=== PATIENT | male | born 1960 | race African-American/Black ===

== ENCOUNTER 2018-07-10 19:12 | Inpatient (IN) | payer OTHER, MEDICAID ==
[~2018-07-10] VITALS: Ht 175.3 cm; Wt 72.6 kg
[2018-07-10] MEDS ORDERED: HYDROCODONE/ACETAMINOPHEN 5/325MG TABLET PO ONE (22:30)
[2018-07-11] MEDS ORDERED: SODIUM CHLORIDE 0.9% 1,000 ML IV ONE (01:22)
[2018-07-11] MEDS ORDERED: MORPHINE SULFATE 4 MG/ML CPJ (NOT FOR IM USE) IV STA (01:22)
[2018-07-11] MEDS ORDERED: ONDANSETRON HCL 4MG/2ML INJ IV STA (01:22)
[2018-07-11 02:11] LABS: BASOPHILS % 0.5 % (0.0-2.0); EOSINOPHILS % 4.4 % (0.0-5.0); HEMATOCRIT. 41.7 % (42.0-52.0); HEMOGLOBIN. 14.2 g/dL (14.0-18.0); LYMPHOCYTES % 50.8 % (20.0-50.0); MEAN CORPUSCULAR HEMOGLOBIN 32.5 pg (28.0-32.0); MEAN CORPUSCULAR VOLUME 95.4 fL (80.0-94.0); MEAN PLATELET VOLUME 8.2 fl (7.4-10.4); MONOCYTES % 8.7 % (2.0-8.0); NEUTROPHILS % 35.6 % (40.0-76.0); PLATELET 205 x1000/uL (130-400); RED BLOOD CELL COUNT 4.37 mill/uL (4.7-6.1); RED CELL DISTRIBUTION WIDTH 14.1 % (11.6-14.6)
[2018-07-11 02:23] LABS: CHLORIDE 105 mEq/L (98-107); INR 1.2; PROTHROMBIN TIME 11.9 sec (9.1-11.1)
[2018-07-11] MEDS ORDERED: DOCUSATE SODIUM 100MG CAPSULE PO PRN (10:00)
[2018-07-11] MEDS ORDERED: ACETAMINOPHEN 650MG/20.3ML UDC GT PRN (10:00)
[2018-07-11] MEDS ORDERED: IPRATROPIUM/ALBUTEROL 0.5-3(2.5)MG/3ML NEB INH PRN (10:00)
[2018-07-11] MEDS ORDERED: ACETAMINOPHEN 325MG TABLET PO PRN (10:00)
[2018-07-11] MEDS ORDERED: HYDROCODONE/ACETAMINOPHEN 5/325MG TABLET PO PRN (10:00)
[2018-07-11] MEDS ORDERED: GUAIFENESIN 200MG/10ML SUGAR FREE UDC PO PRN (10:00)
[2018-07-11] MEDS ORDERED: CLONIDINE 0.1MG TABLET PO PRN (10:00)
[2018-07-11] MEDS ORDERED: MAGNESIUM/ALUMINUM HYDROXIDE/SIMETHICONE 30ML UDC PO PRN (10:00)
[2018-07-11] MEDS ORDERED: ONDANSETRON HCL 4MG/2ML INJ IV PRN (10:00)
[2018-07-11] MEDS ORDERED: ACETAMINOPHEN 650MG SUPP PR PRN (10:00)
[2018-07-11] MEDS ORDERED: NA PHOS,M-B/NA PHOS,DI-BA ENEMA 118ML PR PRN (10:00)
[2018-07-11 11:00] VITALS: BP 138/76
[2018-07-11 12:00] VITALS: BP 147/80
[2018-07-11] MEDS ORDERED: GABA-531 MT (12:28)
[2018-07-11] MEDS ORDERED: INSU100I24 SQ (12:28)
[2018-07-11] MEDS ORDERED: QUET25TA MT (12:28)
[2018-07-11] MEDS ORDERED: LISPRO (12:28)
[2018-07-11] MEDS ORDERED: HYDROCODONE/ACETAMINOPHEN 10/325MG TABLET PO PRN (13:00)
[2018-07-11] MEDS: HYDROCODONE/ACETAMINOPHEN 10/325MG TABLET PO PRN ×2 (13:55→20:03)
[2018-07-11] MEDS: SODIUM CHLORIDE 0.9% INJ 3ML FLUSH IVF SCH ×2 (14:00→20:34)
[2018-07-11] MEDS ORDERED: INFLUENZA VIRUS VACCINE(AFLURIA) 0.5ML SYR IM ONE (14:00)
[2018-07-11 16:00] VITALS: BP 156/84
[2018-07-11] MEDS ORDERED: DEXTROSE 50% WATER 50ML SYRINGE IV PRN (18:45)
[2018-07-11 20:00] VITALS: BP 135/81
[2018-07-11] MEDS: GABAPENTIN 300MG CAPSULE PO SCH (20:02)
[2018-07-11] MEDS: BLOOD SUGAR DIAGNOSTIC STRIP TEST SCH (20:08)
[2018-07-11] MEDS: INSULIN LISPRO 100 UNITS/ML SUBCUT SCH (20:40)
[2018-07-11] MEDS ORDERED: QUETIAPINE FUMARATE 25MG TABLET PO SCH (21:00)
[2018-07-12] VITALS: BP 128/82
[2018-07-12 03:01] VITALS: BP 106/63
[2018-07-12 04:00] VITALS: BP 150/79
[2018-07-12] MEDS: SODIUM CHLORIDE 0.9% INJ 3ML FLUSH IVF SCH ×2 (06:11→14:00)
[2018-07-12] MEDS: HYDROCODONE/ACETAMINOPHEN 10/325MG TABLET PO PRN ×2 (06:18→13:10)
[2018-07-12] MEDS: BLOOD SUGAR DIAGNOSTIC STRIP TEST SCH ×3 (06:28→18:04)
[2018-07-12 07:20] LABS: BASOPHILS % 0.4 % (0.0-2.0); EOSINOPHILS % 3.5 % (0.0-5.0); HEMATOCRIT. 38.3 % (42.0-52.0); LYMPHOCYTES % 44.2 % (20.0-50.0); MEAN CORPUSCULAR HEMOGLOBIN 32.6 pg (28.0-32.0); MEAN CORPUSCULAR VOLUME 96.3 fL (80.0-94.0); MEAN PLATELET VOLUME 8.3 fl (7.4-10.4); MONOCYTES % 10.9 % (2.0-8.0); PLATELET 175 x1000/uL (130-400); RED BLOOD CELL COUNT 3.98 mill/uL (4.7-6.1); RED CELL DISTRIBUTION WIDTH 14.4 % (11.6-14.6)
[2018-07-12 07:55] LABS: CHLORIDE 100 mEq/L (98-107)
[2018-07-12 08:00] VITALS: BP 135/71
[2018-07-12 08:04] LABS: HDL CHOLESTEROL 40 mg/dL (40-59); LDL CHOLESTEROL 46 mg/dL (5-100)
[2018-07-12] MEDS: INSULIN LISPRO 100 UNITS/ML SUBCUT SCH ×3 (08:29→18:02)
[2018-07-12] MEDS: GABAPENTIN 300MG CAPSULE PO SCH ×3 (08:31→17:24)
[2018-07-12 12:00] VITALS: BP 143/88
[2018-07-12] MEDS ORDERED: LIDOCAINE HCL 1% 20ML VIAL (Pyxis) INJ ONE (13:14)
[2018-07-12] MEDS ORDERED: SODIUM BICARBONATE 4% (2.4MEQ) 5ML VIAL IV ONE (13:14)
[2018-07-12 14:33] LABS: *AMPHETAMINES SCREEN URINE NEGATIVE (NEGATIVE); *BARBITURATES SCREEN URINE NEGATIVE (NEGATIVE); *BENZODIAZEPINES SCREEN URINE NEGATIVE (NEGATIVE); *COCAINE SCREEN URINE NEGATIVE (NEGATIVE); CANNABINOID URINE SCREEN NEGATIVE (NEGATIVE); METHADONE URINE SCREEN NEGATIVE (NEGATIVE); OPIATES URINE SCREEN PRESUMTIVE POSITIVE (NEGATIVE); PHENCYCLIDINE URINE SCREEN NEGATIVE (NEGATIVE)
[2018-07-12 16:00] VITALS: BP 106/63
== END 2018-07-12 19:05 | disposition home or self-care (01) | DRG 342 ==
LOC: ER 22:10 → 6EST 07-11 01:45 → ENRESERV 07-11 08:01
PROVIDERS: ADMIT Family Medicine; ATTEND Family Medicine
PROC: 2W3LX1Z Immobilization of Right Lower Extremity using Splint (ICD-10-PCS; 2018-07-10)
PROC: 0S9C3ZZ Drainage of Right Knee Joint, Percutaneous Approach (ICD-10-PCS; principal; 2018-07-12)
DX: S82.141A Displaced bicondylar fracture of right tibia, initial encounter for closed fracture (principal); E11.42 Type 2 diabetes mellitus with diabetic polyneuropathy; E87.6 Hypokalemia; F17.210 Nicotine dependence, cigarettes, uncomplicated; M17.11 Unilateral primary osteoarthritis, right knee; V89.2XXA Person injured in unspecified motor-vehicle accident, traffic, initial encounter; Y93.89 Activity, other specified; Y92.89 Other specified places as the place of occurrence of the external cause; Y99.8 Other external cause status
CPT/HCPCS: 20611; 36415; 71045; 73560; 73700; 73721; 80061; 80305; 82962; 83036; 83615; 86850; 86900; 90686; 93005; 96361; 96374; 96375; 97162; 97535; 99285; J1815; J2270; J2405; J3490; J7030; L1830